=== PATIENT | female | born 1960 | race Caucasian/White ===

== ENCOUNTER 2019-02-05 10:00 | Day surgery (SDC) | payer MEDICAID, OTHER ==
[~2019-02-05] VITALS: Ht 157.5 cm; Wt 63.9 kg
[2019-02-05] VITALS (14 sets, daily range): BP systolic 101–157; BP diastolic 50–76; PULSE 64–76; RESP 15–28; Ht 157.5 cm; Wt 63.9 kg
[~2019-02-05 10:00] MED LIST: ATOR20TA38 PO; CEFAZOLIN 2 GM/50 ML (PMX) 50 ML IVPB ONE; ESCI10TA PO; GLIM2TAB PO; HYDR25TA6 PO; LORA10TA3 PO; MECL-77 PO; OMEP40CA6 PO; SOD CHLORIDE 0.9% 1,000 ML IV SCH; TRAM50TA PO
[2019-02-05] MEDS ORDERED: EPHEDrine 25 MG/5 ML SYG IV ONE (10:01)
[2019-02-05] MEDS ORDERED: BUPIVACAINE 0.25% (MPF) 30 ML INJ ONE (12:43)
[2019-02-05] MEDS ORDERED: PROPOFOL 200 MG INJ ONE (12:54)
[2019-02-05] MEDS ORDERED: EPHEDrine 25 MG/5 ML SYG ONE (12:54)
[2019-02-05] MEDS ORDERED: SUCCINYLCHOLINE CHLORIDE 100 MG/5 ML SYG IV ONE (12:54)
[2019-02-05] MEDS ORDERED: LIDOCAINE 2% (SDV) 5 ML INJ ONE (12:54)
[2019-02-05] MEDS ORDERED: MIDAZOLAM 1 MG/ML 2 ML INJ ONE (12:54)
[2019-02-05] MEDS ORDERED: ROCURONIUM 50 MG INJ ONE (12:54)
[2019-02-05] MEDS ORDERED: DEXAMETHASONE 4 MG/ML 5 ML INJ ONE (12:55)
[2019-02-05] MEDS ORDERED: ONDANSETRON 4 MG INJ ONE (12:55)
[2019-02-05] MEDS ORDERED: ROPIVACAINE 0.5 % 30 ML VIAL ONE (12:55)
[2019-02-05] MEDS ORDERED: EPHEDrine 25 MG/5 ML SYG IV PRN (13:00)
[2019-02-05] MEDS ORDERED: HYDROmorphONE 1 MG/5 ML IV SYRINGE IV PRN (13:00)
[2019-02-05] MEDS ORDERED: ONDANSETRON 4 MG INJ IV PRN (13:00)
[2019-02-05] MEDS ORDERED: hydrALAzine 20 MG INJ IV PRN (13:00)
[2019-02-05] MEDS ORDERED: LABETALOL HCL 20MG INJ IV PRN (13:00)
[2019-02-05] MEDS ORDERED: MIDAZOLAM 1 MG/ML 2 ML INJ IV PRN (13:00)
[2019-02-05] MEDS ORDERED: OXYCODONE/ACETAMINOPHEN (5/325) TAB PO PRN (13:00)
[2019-02-05] MEDS ORDERED: DIPHENHYDRAMINE 50 MG INJ IV PRN (13:00)
[2019-02-05] MEDS ORDERED: MEPERIDINE 25 MG INJ IV PRN (13:00)
[2019-02-05] MEDS ORDERED: KETOROLAC 30 MG INJ ONE (13:47)
[2019-02-05] MEDS ORDERED: SUGAMMADEX SODIUM 200 MG/2 ML VIAL IV ONE (13:48)
[2019-02-05] MEDS ORDERED: HYDROCODONE/APAP (5/325) TAB PO ONE (14:00)
[2019-02-05] MEDS: HYDROmorphONE 1 MG/5 ML IV SYRINGE IV PRN ×2 (14:16→14:22)
[2019-02-05] MEDS: FENTAnyl 50 MCG/ML VIAL IV PRN ×4 (14:27→14:41)
== END 2019-02-05 16:19 | disposition home or self-care (01) ==
LOC: SDS 10:00
PROVIDERS: ATTEND Surgery
DX: K80.10 Calculus of gallbladder with chronic cholecystitis without obstruction (principal); I10 Essential (primary) hypertension; E11.9 Type 2 diabetes mellitus without complications; K21.9 Gastro-esophageal reflux disease without esophagitis; E78.5 Hyperlipidemia, unspecified
CPT/HCPCS: 82962; 88304; J0690; J1100; J1170; J1885; J2250; J2405; J2795; J3010